=== PATIENT | male | born 1940 | race Caucasian/White ===

== ENCOUNTER 2016-11-07 20:02 | Emergency (ER) | payer MEDICARE ==
[~2016-11-07] VITALS: Ht 177.8 cm; Wt 86.2 kg
[2016-11-07 20:02] VITALS: BP_SYST 99
--- NOTE | 2016-11-07 20:02 | NUR ---
Patient to ER bed 6 to gown for evaluation. Side rails up. Report given to JOCE GARZA.
--- NOTE | 2016-11-07 20:15 | NUR ---
Patient AOx4, BIBA for complaint of dizziness and hypotension. Patient states he was having dinner had 2 glasses of wine and took his HTN medication. Patient states that's when he started feeling dizzy and weak. No acute distress noted at this time. Denies any pain.
--- NOTE | 2016-11-07 20:30 | NUR ---
[place] at bedside examining patient.
[2016-11-07 20:33] VITALS: BP_SYST 117
--- NOTE | 2016-11-07 20:33 | NUR ---
Patient does not wish to proceed with medical care recommended by Dr. Minor. Patient given information related to possible complications, up to and including , which could occur as a result of leaving hospital at this time. Patient verbalizes understanding of risks involved leaving against medical advice. Patient has signed AMA form.
== END 2016-11-07 20:33 | disposition left against medical advice (07) ==
LOC: SED 20:02
DX: R55 Syncope and collapse (principal); F10.10 Alcohol abuse, uncomplicated; I10 Essential (primary) hypertension; E07.9 Disorder of thyroid, unspecified
CPT/HCPCS: 99281